=== PATIENT | female | born 1980 | race Two or more races ===

== ENCOUNTER → 2018-02-12 | Outpatient (CLI) | payer BC ==
[~2018-02-12] MED LIST: LIDOCAINE 2% (LOCAL ANESTH.) PF 5ml SDV ONE
[2018-02-12 13:43] LABS: Protein, CSF 45.3 mg/dL (15-45)
[2018-02-12 14:18] LABS: CSF White Blood Cells 1 CUMM (0-5)
== END | disposition home or self-care (01) ==
LOC: XY 11:29
PROVIDERS: ATTEND Psychiatry & Neurology Neurology
DX: R51 Headache (principal)
CPT/HCPCS: 62272; 77003; 82945; 84157; 87070; 87205; 88108; 89051; J2001